=== PATIENT | female | born 1985 | race Two or more races ===

== ENCOUNTER → 2016-12-08 | Day surgery (SDC) | payer BC ==
[~2016-12-08] VITALS: Ht 154.9 cm; Wt 60.1 kg
[~2016-12-08] MED LIST: ACETAMINOPHEN 1000 MG/100 ML 100 ML IV ONE; CHLORHEXIDINE GLUCONATE 2 % 1 PACK (2 CLOTHS) TOPICAL PRN; DO NOT ADM ANY ANTICOAGULANT DRUGS PRN; FAMOTIDINE 20 MG/2 ML VIAL ONE; INSULIN HUMAN REGULAR 1,000 UNITS/10 ML VIAL SQ PRN; KETOROLAC TROMETHAMINE 30 MG/ML (IVP) VIAL IV PUSH ONE; KETOROLAC TROMETHAMINE 30 MG/ML (IVP) VIAL ONE; LACTATED RINGER'S 1000 ML IV PRN; LEVO50TA4 PO; LIDOCAINE 2%/EPINEPHrine PF 1:200,000 20ML SDV ONE; METF500T PO; METOPROLOL TARTRATE 25 MG TAB PO PRN; POVIDONE IODINE 5% (ANTISEPSIS KIT) 4 APPLICATIONS EACH NARE PRN; PREN29TA PO; SILVER NITR/POTASSIUM NITRATE APPLICATORS TOPICAL ONE; SODIUM CHLORID 0.9% 500 ML IV PRN; oxyCODONE/ACETAMINOPHEN 5 MG/325 MG TAB PO PRN
[2016-12-08 08:38] VITALS: BP 105/65; PULSE 68; RESP 18; TEMP 97.7; O2SAT 100
--- NOTE | 2016-12-09 11:01 | MP ---
cc: ALEXANDER JENKINS M.D., KELLY L. MD DATE OF SURGERY 12/08/2016 PREOPERATIVE DIAGNOSIS 1. Complex atypical endometrial hyperplasia. 2. Irregular bleeding with anemia. POSTOPERATIVE DIAGNOSIS 1. Complex atypical endometrial hyperplasia. 2. Irregular bleeding with anemia. PROCEDURE 1. Exam under anesthesia 2. Colposcopy 3. Fractional dilation and curettage SURGEON Jewell Simpson MD FINANCIAL PROCESSING CLERK [place] first assistant manager ANESTHESIA Laryngeal mask anesthesia ESTIMATED BLOOD LOSS 70 cc HISTORY This is a 31-year-old female undergoing an infertility workup. She had an endometrial biopsy that showed complex atypical hyperplasia. It is also noted that several years ago, she had complex atypical hyperplasia and was treated on cyclic progesterone. Follow up D&C showed normalization of the endometrium, but she did not pursue and/or achieve at that time. She is again now interested in achieving a undergoing evaluation and management with the assistance of a donor services specialist. Endometrial biopsy again showed complex atypical hyperplasia. She was referred to [facility] for further evaluation and management. She has been counseled in our office. She is seen again in the preop holding area. We have recommended dilation and curettage to ensure a more adequate sampling of all surfaces of the endometrium. This may also provide that potentially some therapeutic benefit as she has had some irregular heavy bleeding with her periods and her preop hemoglobin is 8.7. She also understands that complex atypical hyperplasia is considered potentially a precancerous condition and often may causes an endometrial cancer such that further evaluation may alter the diagnosis and/or recommendations. She agrees and would like to move forward with surgery. FINDINGS On exam under anesthesia, the cervix grossly appears normal and smooth. Acetic acid is applied to the cervix and the endocervix is inspected. There are no atypical areas extending onto the transformation zone or onto the ectocervix. The uterine cavity sounds to 9 cm. The uterus is slightly retroverted. Upon curetting of the endocervix, a scant amount of tissue was obtained. She appears to be on her menstrual period as there is moderate bleeding. Upon curetting of the endometrium, however, there is a large volume of polypoid fragmented tissue that is removed from essentially all surfaces of the endometrium, but most noted in the posterior and right lateral areas in the lower uterine segment. PROCEDURE She was taken to the operating room, placed in the dorsal lithotomy position after general endotracheal anesthesia was administered. A time-out was undertaken. She was identified by sight recognition and hospital ID bracelet and the proposed procedure was reviewed and confirmed. She was carefully positioned in the lithotomy position, prepped and draped in a sterile fashion after exam under anesthesia had been informed and after colposcopy had been performed with findings as described above. The cervix was grasped. The uterine cavity sounded. Endocervical curetting was performed with multiple passes circumferentially obtaining tissue and combining the tissue as endocervical sampling. In multiple passes circumferentially on all surfaces of the endometrium where a large volume of tissue was obtained as described above and curetting was continued until all surfaces of the endometrium again felt gritty. It is noted that with curetting, the bleeding markedly reduced and the uterine cavity reduced now to approximately 7.5 cm on sounding. The tenaculum sites were rendered hemostatic with silver nitrate. There were no remaining foreign objects in the vagina. Preliminary and final counts were correct. There was good hemostasis. She was returned to dorsal supine position and pending reversal of anesthesia when I left the operating room to precede her to the Post Anesthesia Care Unit. MD [place] Bunch/JOSESITO /10:35 AM /10:44 AM
== END | disposition home or self-care (01) ==
LOC: PHSDC 05:17
PROVIDERS: ATTEND Obstetrics & Gynecology Gynecologic Oncology
DX: N85.02 Endometrial intraepithelial neoplasia [EIN] (principal); N92.6 Irregular menstruation, unspecified; D64.9 Anemia, unspecified
CPT/HCPCS: 00940; 57420; 58110; 58120; 86850; 86900; 86901; 88305; J0131; J1885; J7120

== ENCOUNTER → 2017-06-29 | Day surgery (SDC) | payer BC ==
[~2017-06-29] VITALS: Ht 154.9 cm; Wt 62.1 kg
[~2017-06-29] MED LIST changes: -ACETAMINOPHEN 1000 MG/100 ML 100 ML IV ONE; +APREPITANT 40 MG CAP ONE; +DEXAMETHASONE SOD PHOS 4 MG/ML VIAL IV ONE; +ESTROGENS CONJUGATED VAG CREA 15 APPL/30 GM TUBE ONE; -INSULIN HUMAN REGULAR 1,000 UNITS/10 ML VIAL SQ PRN; +LIDOCAINE 1%/EPINEPHrine 1:100,000 SOLN 30 ML VIAL ONE; -LIDOCAINE 2%/EPINEPHrine PF 1:200,000 20ML SDV ONE; +LIDOCAINE HCL 1% PF 5 ML SYRINGE OTHER ONE; +MEDR2.5 PO; +MIDAZOLAM HCL 2 MG/2 ML VIAL ONE; +ONDANSETRON HCL 4 MG/2 ML VIAL IV PUSH ONE; +ONDANSETRON HCL 4 MG/2 ML VIAL ONE; -PREN29TA PO; +PROPOFOL 200 MG/20 ML AMP IV ONE; -SILVER NITR/POTASSIUM NITRATE APPLICATORS TOPICAL ONE
--- NOTE | 2017-06-29 14:58 | MP ---
cc: Jewell Simpson MD, Deborah DNP Freeman, Michael L MD DATE OF OPERATION: 06/29/2017 DATE OF PROCEDURE: 06/29/2017 PREOPERATIVE DIAGNOSES: 1. Complex atypical endometrial hyperplasia. 2. Ongoing progesterone management. POSTOPERATIVE DIAGNOSES: 1. Complex atypical endometrial hyperplasia. 2. Ongoing progesterone management. PROCEDURE PERFORMED: Exam under anesthesia, fractional dilation and curettage. SURGEON: Jewell Simpson MD LEGAL OFFICER: [employer] operations manager assistant. ANESTHESIA: Laryngeal mask. ESTIMATED BLOOD LOSS: 10 mL. IV FLUIDS: 800 mL. URINE OUTPUT: 200 mL. HISTORY OF PRESENT ILLNESS: A 32-year-old female undergoing evaluation for secondary infertility. Endometrial biopsy showed complex atypical hyperplasia, for which she has been started on progesterones and now has been on them for approximately 6 months. She has been counseled regarding reevaluation of the endometrial tissue to determine if progesterone has effectively reversed these atypical changes and she presents now for that endeavor. Her history is such that she previously had biopsy proven complex atypical hyperplasia several years ago. Progesterone management completely reversed those changes. Followup D and C showed normal endometrium and she was able to move forward with assisted reproductive efforts, but did not result in a , but her desire for has persisted and her ongoing evaluation and management as outlined above. She is seen again in the preop holding area where the findings are again reviewed. The plan of care was discussed. Her family members are present. She expressed good understanding and would like to move forward. FINDINGS: On exam under anesthesia, there is no appreciable enlarged inguinal lymph nodes. External genitalia without mass or lesion. Cervix grossly appears normal. The uterus sounds to 9 cm and despite aggressive curetting circumferentially multiple passes of the cervix and endometrium, there is a scant amount of tissue upon curetting. No other mass or nodularity detected. DESCRIPTION OF PROCEDURE: She is taken to the operating room and placed in dorsal lithotomy position, after laryngeal mask anesthesia was administered. Timeout was undertaken. She was identified by site recognition and hospital ID bracelet and the proposed procedure was reviewed and confirmed. She was carefully positioned in lithotomy position, prepped and draped in sterile fashion, in-and-out catheterization of the bladder, exam under anesthesia was performed with findings as described above. Cervix was placed on countertraction. Uterine cavity sounded. Endocervical curetting was performed circumferentially with multiple passes and the tissue was combined as endocervical curettings. The cervix was then dilated, uterine cavity again sounded and a medium curet was used circumferentially, multiple passes with most of the surfaces of the endometrium feeling gritty, with scant amount of tissue obtained. No other detectable abnormality upon curetting. At the completion of the case, all surfaces of the endometrium were gritty and normal in feedback architecture. The tenaculum was removed. The tenaculum sites were rendered hemostatic with silver nitrate. There were no remaining foreign objects in the vagina. Preliminary and final counts were correct. She was completely hemostatic. She was returned to dorsal lithotomy position and pending reversal of anesthesia when I left the operating room to precede her to the postanesthesia care unit. MD ASHKAN Youngblood/SARBJIT , 02:35 PM , 02:58 PM
[2017-06-29 16:30] VITALS: BP 133/95; PULSE 63; RESP 18; TEMP 97.3; O2SAT 100
== END | disposition home or self-care (01) ==
LOC: HSDC 11:16
PROVIDERS: ATTEND Obstetrics & Gynecology Gynecologic Oncology
DX: N85.02 Endometrial intraepithelial neoplasia [EIN] (principal)
CPT/HCPCS: 00940; 58120; 86850; 86900; 86901; 88305; J1100; J1885; J2250; J2405; J3010; J7120; J8501